=== PATIENT | female | born 1995 | race African-American/Black ===

== ENCOUNTER 2017-02-06 07:53 | Inpatient (IN) | payer MEDICAID ==
[~2017-02-06] VITALS: Ht 157.5 cm; Wt 60.0 kg
[~2017-02-06 07:53] MED LIST: FentaNYL CITRATE-PF 100 MCG/2 ML VIAL IVP ONE
[2017-02-06 08:30] LABS: APPEARANCE,URINE CLEAR (CLEAR); GLUCOSE, URINE (UA) NEGATIVE (NEGATIVE); KETONES,URINE NEGATIVE (NEGATIVE); LEUKOCYTE ESTERASE ,URINE NEGATIVE (NEGATIVE); OCCULT BLOOD,URINE NEGATIVE (NEGATIVE); PROTEIN,URINE NEGATIVE (NEGATIVE)
[2017-02-06] MEDS ORDERED: SODIUM CHLORIDE 0.9% 1,000 ML IV ONE (08:30)
[2017-02-06] MEDS ORDERED: MORPHINE SULFATE 2 MG/ML SYRINGE IVP ONE (08:30)
[2017-02-06] MEDS ORDERED: ONDANSETRON HCL 4 MG/2 ML VIAL IVP ONE ×3 (08:30→12:00)
[2017-02-06 08:31] LABS: ADD UA MICROSCOPIC NO
[2017-02-06 08:34] LABS: ANION GAP 14 mmol/L (8-16); CALCIUM, TOTAL 9.9 mg/dL (8.8-10.5); CARBON DIOXIDE 22 mmol/L (22-29); CHLORIDE 102 mmol/L (98-107); CREATININE 0.79 mg/dL (0.60-1.30); GLOMERULAR FILTR. RATE CALC > 60 mL/min (>60); POTASSIUM 3.5 mmol/L (3.5-5.1); SODIUM SERUM 138 mmol/L (136-145); UREA NITROGEN, BLOOD 17 mg/dL (7-18)
[2017-02-06 08:35] LABS: HEMOGLOBIN 15.1 g/dL (12.0-16.0); MEAN CORPUSCULAR HEMOGLOBIN 30.4 pg (26.0-34.0); MEAN CORPUSCULAR HGB CONC 34.3 G/dL (31.0-37.0); MEAN CORPUSCULAR VOLUME 89 fL (80-100); PLATELET COUNT (AUTO) 222 K/uL (150-450); RED BLOOD CELL COUNT(AUTO) 4.97 MIL/uL (4.00-5.20); RED CELL DISTRIBUTION WIDTH 13.6 % (11.5-14.5); WHITE BLOOD COUNT (AUTO) 17.7 K/uL (4.5-11.0)
[2017-02-06 08:39] LABS: ALANINE AMINOTRANSFERASE 32 U/L (12-78); ALBUMIN 5.2 g/dL (3.4-5.0); ASPARTATE AMINOTRANSFERASE 21 U/L (15-37); BILIRUBIN,TOTAL 3.1 mg/dL (0.1-1.0); TOTAL PROTEIN, SERUM 9.2 g/dL (6.4-8.2)
[2017-02-06 08:55] LABS: BAND NEUTROPHILS % (MANUAL) 18 % (1-5); LYMPHOCYTES % (MANUAL) 8 % (22-44); RBC MORPHOLOGY COMMENT NORMAL RBC MORPH; TOTAL CELLS COUNTED 100
[2017-02-06] MEDS ORDERED: BARIUM SULFATE 0.1% SUSPENSION 450 ML BOTTLE PO ONE (09:45)
[2017-02-06] MEDS ORDERED: SODIUM CHLORIDE 0.9% 100 ML ONE (11:25)
[2017-02-06] MEDS ORDERED: IOVERSOL 350 MG/ML 100 ML VIAL ONE (11:25)
[2017-02-06] MEDS ORDERED: DEXAMETHASONE SOD PHOS 4 MG/ML VIAL IVP ONE (12:00)
[2017-02-06] MEDS ORDERED: PROPOFOL 1% 20 ML VIAL IVP ONE (12:00)
[2017-02-06] MEDS ORDERED: ROCURONIUM BROMIDE 10 MG/ML 5 ML VIAL IVP ONE (12:00)
[2017-02-06] MEDS ORDERED: KETOROLAC TROMETHAMINE 60 MG/2 ML VIAL IM ONE (12:00)
[2017-02-06] MEDS ORDERED: LIDOCAINE HCL/PF 2% 5 ML VIAL INJ ONE (12:00)
[2017-02-06] MEDS ORDERED: NEOSTIGMINE METHYLSULFATE 1 MG/ML 10 ML VIAL IVP ONE (12:00)
[2017-02-06] MEDS ORDERED: METOCLOPRAMIDE HCL 5 MG/ML 2 ML VIAL IVP ONE (12:00)
[2017-02-06] MEDS ORDERED: GLYCOPYRROLATE 0.2 MG/ML VIAL IM ONE (12:00)
[2017-02-06] MEDS ORDERED: CefoTEtan DISOD 2 GM/DEXTROSE 50 ML IV ONE (14:30)
[2017-02-06] MEDS ORDERED: RINGERS SOLUTION,LACTATED 1,000 ML IV ONE ×3 (14:52→15:00)
[2017-02-06] MEDS ORDERED: BUPIVACAINE HCL/PF 0.25% 30 ML VIAL ONE (14:52)
[2017-02-06] MEDS ORDERED: SODIUM CL IRRIG SOLN BAG 3,000 ML IRRIG ONE (14:53)
[2017-02-06] MEDS ORDERED: FentaNYL CITRATE-PF 100 MCG/2 ML VIAL IVP PRN (15:45)
[2017-02-06] MEDS ORDERED: MEPERIDINE-PF 25 MG/ML SYRINGE IVP PRN (15:45)
[2017-02-06] MEDS ORDERED: HYDROmorphone 2 MG/ML SYRINGE IVP PRN (15:45)
[2017-02-06] MEDS ORDERED: MICROFIBRILLAR COLLAGEN 1 GM PACKAGE TP ONE (16:51)
[2017-02-06] MEDS ORDERED: ACETAMINOPHEN 1000 MG/ISO-OSM 100 ML IV ONE (17:33)
[2017-02-06] MEDS ORDERED: GUM MASTIC/STORAX/MSAL/ALCOHOL LIQUID 0.67 ML VIAL TP ONE (17:55)
[2017-02-06 19:50] VITALS: BP 112/63
[2017-02-06] MEDS: OXYGEN THERAPY IH SCH (20:00)
[2017-02-06] MEDS: OxyCODONE HCL/ACETAMINOPHEN 5-325 MG TABLET PO PRN (20:21)
[2017-02-06] MEDS: KETOROLAC TROMETHAMINE 30 MG/ML VIAL IVP SCH (23:28)
[2017-02-06 23:47] VITALS: BP 104/48
[2017-02-07] MEDS ORDERED: IBUP100O27 PO ×2 (00:04→00:05)
[2017-02-07] MEDS ORDERED: IBUP-2070 PO (00:07)
[2017-02-07] MEDS ORDERED: DOCU-119 PO (00:08)
[2017-02-07] MEDS ORDERED: PERCT PO (00:10)
[2017-02-07 04:32] VITALS: BP 90/56
[2017-02-07] MEDS: KETOROLAC TROMETHAMINE 30 MG/ML VIAL IVP SCH ×2 (05:15→12:00)
[2017-02-07] MEDS ORDERED: INFLUENZA VIRUS VACCINE QVS 2017-18 (3YR+)/PF 60 MCG/0.5 ML SYRINGE IM ONE (06:30)
[2017-02-07] MEDS ORDERED: ACETAMINOPHEN/ISO-OSM 1000 MG/100 ML BOTTLE IV ONE (07:11)
[2017-02-07 07:57] VITALS: BP 105/64
[2017-02-07] MEDS: OXYGEN THERAPY IH SCH (08:00)
[2017-02-07] MEDS: OxyCODONE HCL/ACETAMINOPHEN 5-325 MG TABLET PO PRN (08:40)
[2017-02-07 11:10] VITALS: BP 107/62
== END 2017-02-07 13:10 | disposition home or self-care (01) | DRG 513 ==
LOC: EMS 07:55 → 6N 14:39
PROVIDERS: ADMIT Obstetrics & Gynecology; ATTEND Obstetrics & Gynecology
PROC: 0UB00ZZ Excision of Right Ovary, Open Approach (ICD-10-PCS; 2017-02-06)
PROC: 0WJG4ZZ Inspection of Peritoneal Cavity, Percutaneous Endoscopic Approach (ICD-10-PCS; principal; 2017-02-06 15:00)
DX: D27.0 Benign neoplasm of right ovary (principal); R65.10 Systemic inflammatory response syndrome (SIRS) of non-infectious origin without acute organ dysfunction; K66.8 Other specified disorders of peritoneum; Z28.21 Immunization not carried out because of patient refusal
CPT/HCPCS: 74177; 87081; 88305; 96361; 96374; 96375; 99285; J0131; J1100; J1885; J2270; J2405; J2704; J2765; J3010; J3490; J7030; J7050; J7120

== ENCOUNTER 2017-12-17 22:26 | Emergency (ER) | payer MEDICAID ==
[~2017-12-17] VITALS: Ht 160 cm; Wt 53.6 kg
[~2017-12-17 22:26] MED LIST changes: +DOCU-119 PO; -FentaNYL CITRATE-PF 100 MCG/2 ML VIAL IVP ONE; +IBUP-2070 PO; +PERCT PO
[2017-12-17] MEDS ORDERED: LORA10TA7 PO (22:51)
[2017-12-17 23:10] LABS: BASOPHILS % (AUTO) 1.1 % (0.0-2.0); EOSINOPHILS % (AUTO) 2.8 % (1.0-6.0); HEMATOCRIT 37.8 % (36-46); LYMPHOCYTES % (AUTO) 38.2 % (22.0-44.0); MEAN CORPUSCULAR HEMOGLOBIN 29.9 pg (26.0-34.0); MEAN CORPUSCULAR HGB CONC 34.3 G/dL (31.0-37.0); MEAN CORPUSCULAR VOLUME 87 fL (80-100); MONOCYTES # (AUTO) 0.6 K/uL (0.1-1.0); NEUTROPHILS % (AUTO) 49.9 % (40.0-70.0); PLATELET COUNT (AUTO) 227 K/uL (150-450); RED BLOOD CELL COUNT(AUTO) 4.33 MIL/uL (4.00-5.20); RED CELL DISTRIBUTION WIDTH 13.8 % (11.5-14.5)
[2017-12-17 23:22] LABS: PROTHROMBIN TIME 10.9 SEC (9.4-11.6)
[2017-12-17 23:38] LABS: B-TYPE NATRIURETIC PEPTIDE < 5 pg/mL (0-100)
[2017-12-17 23:42] LABS: ANION GAP 10 mmol/L (8-16); CALCIUM, TOTAL 9.4 mg/dL (8.8-10.5); CARBON DIOXIDE 25 mmol/L (22-29); CHLORIDE 106 mmol/L (98-107); CREATININE 0.75 mg/dL (0.60-1.30); GLOMERULAR FILTR. RATE CALC > 60 mL/min (>60); GLUCOSE,RANDOM 95 mg/dL (70-110); POTASSIUM 3.8 mmol/L (3.5-5.1); SODIUM SERUM 141 mmol/L (136-145); UREA NITROGEN, BLOOD 18 mg/dL (7-18)
[2017-12-17 23:48] LABS: ALANINE AMINOTRANSFERASE 15 U/L (12-78); ALBUMIN 4.2 g/dL (3.4-5.0); ALKALINE PHOSPHATASE 68 U/L (46-116); ASPARTATE AMINOTRANSFERASE 14 U/L (15-37); BILIRUBIN,TOTAL 1.7 mg/dL (0.1-1.0); CREATINE KINASE, TOTAL 40 U/L (26-192); TOTAL PROTEIN, SERUM 7.3 g/dL (6.4-8.2)
[2017-12-18] MEDS ORDERED: ACETAMINOPHEN 500 MG TABLET ONE (00:09)
[2017-12-18] MEDS ORDERED: KETOROLAC TROMETHAMINE 30 MG/ML VIAL IVP ONE (02:00)
[2017-12-18] MEDS ORDERED: IOVERSOL 350 MG/ML 100 ML VIAL ONE (02:51)
[2017-12-18 06:27] VITALS: BP 117/63
== END 2017-12-18 06:29 | disposition home or self-care (01) ==
LOC: EMS 22:28
DX: I31.9 Disease of pericardium, unspecified (principal)
CPT/HCPCS: 36415; 71045; 71260; 80053; 81025; 82550; 83880; 84484; 85025; 85610; 85730; 93005 ×2; 96374; 99285; J1885; Q9967